=== PATIENT | female | born 1940 | race Caucasian/White ===

== ENCOUNTER 2018-12-12 13:07 | Outpatient (CLI) | payer MEDICARE, OTHER ==
--- NOTE | 2018-12-13 19:17 | Diagnostic Imaging Report ---
PATIENT MR#: [id number] PATIENT PATIENT NAME: ZOHRA ALVARENGA DATE OF : 1940 REFERRING PHYSICIAN: Garfield Mosley EXAM DATE: 12/12/2018 ACCESSION NUMBER: [id number] EXAM DESCRIPTION: DEXA DUAL ENERGY X-RAY ABSORPTIOMETRY (DXA) A DXA scan was performed on December 11, 2018 using a Xipin densitometer. IMPRESSION: Based on BMD, diagnosis is consistent with osteoporosis (based on WHO criteria). Fracture risk is hig h. Pharmacologic treatment, if not already prescribed, should be started. Follow-up bone densitometry is recommended i n 1 year to monitor response to therapy. INDICATION: POST MENOPAUSAL Technical Quality: Diagnostic RESULTS: Lumbar Spine: The BMD measured in the L2-L4 region is 0.746 g/cm2. T-score -3.8 Femoral Neck: The BMD measured at the bilateral mean femoral neck is 0.646 g/cm2. T-score -2.9 Read by: Dr. Rao Baird Transcribed by: Rao Baird Transcribed Date: 12/13/2018 7:16:03 PM Electronically signed by: Dr. Rao Baird Date signed: 12/13/2018 7:17:04 PM
== END 2018-12-12 13:17 ==
LOC: RAD 13:07
PROVIDERS: ATTEND Family Medicine
DX: Z78.0 Asymptomatic menopausal state (principal)
CPT/HCPCS: 77080